=== PATIENT | male | born 1985 | race Hispanic/Latino ===

== ENCOUNTER 2022-12-19 19:53 | Emergency (ER) | payer MEDICARE ==
[~2022-12-19] VITALS: Ht 142.2 cm; Wt 54.4 kg
[2022-12-19] MEDS ORDERED: DIATR MEGLU/DIATRIZOATE SODIUM 30 ML BOTTLE ONE (20:52)
[2022-12-19 21:37] VITALS: BP 132/79
== END 2022-12-19 21:39 | disposition home or self-care (01) ==
LOC: EDH 19:53
DX: K94.23 Gastrostomy malfunction (principal); Z04.9 Encounter for examination and observation for unspecified reason; Y83.9 Surgical procedure, unspecified as the cause of abnormal reaction of the patient, or of later complication, without mention of misadventure at the time of the procedure; Y82.8 Other medical devices associated with adverse incidents
CPT/HCPCS: 99284; 43762; 74018; Q9963

== ENCOUNTER 2022-12-21 13:52 | Emergency (ER) | payer MEDICARE ==
[~2022-12-21] VITALS: Ht 137.2 cm; Wt 54.4 kg
[2022-12-21 13:57] VITALS: BP 162/97
[2022-12-21] MEDS ORDERED: DIATR MEGLU/DIATRIZOATE SODIUM 30 ML BOTTLE ONE (16:12)
[2022-12-21] MEDS ORDERED: ZINC28PA TP (17:04)
[2022-12-21] MEDS ORDERED: CEPH500C2 PO (17:04)
[2022-12-21] MEDS ORDERED: MICO45CR44 TP (17:04)
== END 2022-12-21 17:29 | disposition home or self-care (01) ==
LOC: EDH 13:52
DX: K94.23 Gastrostomy malfunction (principal); J45.909 Unspecified asthma, uncomplicated; Z98.890 Other specified postprocedural states; Z59.7 Insufficient social insurance and welfare support
CPT/HCPCS: 99284; 74018; Q9963

== ENCOUNTER 2023-01-02 20:42 | Emergency (ER) | payer MEDICARE ==
[~2023-01-02] VITALS: Ht 149.9 cm; Wt 58.5 kg
[~2023-01-02 20:42] MED LIST: CEPH500C2 PO; MICO45CR44 TP; ZINC28PA TP
[2023-01-02 23:45] LABS: BASOPHILS % (AUTO) 0.2 % (0.0-5.0); EOSINOPHILS % (AUTO) 0.2 % (0.0-8.0); HEMATOCRIT 35.2 % (42-54); LYMPHOCYTES % (AUTO) 9.9 % (21.0-51.0); MEAN CORPUSCULAR HEMOGLOBIN 31.6 pg (27.0-33.0); MEAN CORPUSCULAR HGB CONC 33.8 g/dL (32.0-36.0); MEAN CORPUSCULAR VOLUME 93.4 fL (79-99); PLATELET COUNT (AUTO) 343 K/uL (130-400); RED BLOOD CELL COUNT(AUTO) 3.77 MIL/uL (4.50-6.20); RED CELL DISTRIBUTION WIDTH 11.6 % (11.0-15.5); WHITE BLOOD COUNT (AUTO) 24.4 K/uL (4.8-10.8)
[2023-01-02 23:52] LABS: CREATININE 0.7 mg/dL (0.5-1.5); POTASSIUM 5.3 mmol/L (3.5-5.1)
[2023-01-02 23:57] LABS: ALBUMIN 3.5 g/dL (3.5-5.0); TOTAL PROTEIN, SERUM 8.9 g/dL (6.0-8.3)
[2023-01-03] MEDS: 0.9%NACL 1000ML 1,000 ML IV SCH ×2 (01:09→05:31)
[2023-01-03] MEDS ORDERED: SULFAMETHOX-TMP DS 800/160 TAB PO STA (01:17)
[2023-01-03] MEDS ORDERED: CLINDAMYCIN IVPB 600MG/50ML 50 ML IV SCH (01:30)
[2023-01-03] MEDS ORDERED: CLIN-141 PO (03:57)
[2023-01-03] MEDS ORDERED: SULF1TAB42 PO (03:57)
[2023-01-03] MEDS ORDERED: ZOSYN 3.375GM +NS 50ML IVPB ONE (04:00)
[2023-01-03] MEDS ORDERED: 0.9%NACL 1000ML 1,000 ML IV SCH (05:30)
[2023-01-03 06:35] VITALS: BP 113/68
== END 2023-01-03 06:47 | disposition home or self-care (01) ==
LOC: EDH 20:42
DX: L03.317 Cellulitis of buttock (principal)
CPT/HCPCS: 99284; 80053; 85025; 87040 ×2; 83605 ×2; 36415 ×2; 96365; 96361; J7030; J2543; J3490